=== PATIENT | male | born 1940 | race Caucasian/White ===

== ENCOUNTER 2016-05-14 10:07 | Emergency (ER) | payer OTHER ==
[~2016-05-14] VITALS: Ht 185.4 cm; Wt 112.5 kg
[2016-05-14 10:25] VITALS: BP 113/86; PULSE 75; RESP 19; TEMP 98.9; O2SAT 94
[2016-05-14] MEDS ORDERED: LOVA20TA PO (11:30)
[2016-05-14] MEDS ORDERED: TAMS5CAP PO (11:30)
--- NOTE | 2016-05-14 11:53 | PD ---
HPI Chief Complaint: Cold / Flu Symptoms Time Seen by Provider: 11:34 Travel History International Travel<30 days: No Contact w/Intl Traveler<30days: No Traveled to known affect area: No History of Present Illness HPI This 76-year-old male says he been sick for about a week. He has been having a persistent cough. He is having a lot of sinus drainage. He has a long history of sinus trouble. He's had recurrent infections and has had procedures to drain his sinuses and past. He does not smoke. He has no history of hypertension diabetes or heart disease. He's been having fevers and chills. He 's had diminished appetite. He's been feeling quite weak at home. PFSH Past Medical History High Cholesterol: Yes Chemotherapy: No (BLADDER CA) Tetanus Vaccination: > 5 Years Influenza Vaccination: Yes Past Surgical History Genitourinary Surgery: Yes (bladder surgery r/t cancer) Social History Alcohol Use: Yes (occas beer) Tobacco Use: No (quit in 1996 smoked 1 1/2 ppd cigs) Substance Use: No Allergies-Medications (Allergen,Severity, Reaction): Coded Allergies: Ceclor (Verified Allergy, Severe, FACE AND TONGUE SWELLING, 05/14/16) Reported Meds & Prescriptions Reported Meds & Active Scripts Active Reported Lovastatin 20 Mg Tab 20 Mg PO DAILY Flomax (Tamsulosin HCl) 0.4 Mg Cap 0.4 Mg PO HS Review of Systems General / Constitutional: Positive: Fever, Chills Eyes: No: Diploplia HENT: Positive: Headaches Cardiovascular: No: Chest Pain or Discomfort Respiratory: Positive: Cough, Pleuritic Pain Gastrointestinal: Positive: Nausea, No: Vomiting, Diarrhea Genitourinary: No: Frequency, Dysuria Musculoskeletal: No: Myalgias Neurologic: Positive: Weakness Physical Exam Narrative GENERAL: Well-developed male SKIN: Warm and dry. HEAD: Atraumatic. Normocephalic. He has some tenderness in the frontal sinuses bilaterally EYES: Pupils equal and round. No scleral icterus. No injection or drainage. ENT: No nasal bleeding or discharge. Mucous membranes pink and moist. NECK: Trachea midline. No JVD. CARDIOVASCULAR: Regular rate and rhythm. No murmur appreciated. RESPIRATORY: No accessory muscle use. Clear to auscultation. Breath sounds equal bilaterally. GASTROINTESTINAL: Abdomen soft, non-tender, nondistended. Hepatic and splenic margins not palpable. MUSCULOSKELETAL: No obvious deformities. No clubbing. No cyanosis. No edema. NEUROLOGICAL: Awake and alert. No obvious cranial nerve deficits. Motor grossly within normal limits. Normal speech. PSYCHIATRIC: Appropriate mood and affect; insight and judgment normal. Data Data Last Documented VS Vital Signs Date Time Temp Pulse Resp B/P Pulse Ox O2 Delivery O2 Flow Rate FiO2 05/14/16 11:23 78 18 94 Room Air 05/14/16 10:25 98.9 113/86 Orders Complete Blood Count With Diff (05/14/16 11:49) Basic Metabolic Panel (Bmp) (05/14/16 11:49) Influenzae A/B Antigen (05/14/16 11:49) Chest, Pa & Lat (05/14/16 11:49) Sodium Chlor 0.9% 1000 Ml Inj (Ns 1000 M (05/14/16 12:00) Labs Laboratory Tests Test 05/14/16 12:05 White Blood Count 6.7 TH/MM3 Red Blood Count 5.37 MIL/MM3 Hemoglobin 16.5 GM/DL Hematocrit 48.5 % Mean Corpuscular Volume 90.2 FL Mean Corpuscular Hemoglobin 30.8 PG Mean Corpuscular Hemoglobin 34.1 % Concent Red Cell Distribution Width 12.3 % Platelet Count 144 TH/MM3 Mean Platelet Volume 8.3 FL Neutrophils (%) (Auto) 58.6 % Lymphocytes (%) (Auto) 30.1 % Monocytes (%) (Auto) 8.4 % Eosinophils (%) (Auto) 1.9 % Basophils (%) (Auto) 1.0 % Neutrophils # (Auto) 3.9 TH/MM3 Lymphocytes # (Auto) 2.0 TH/MM3 Monocytes # (Auto) 0.6 TH/MM3 Eosinophils # (Auto) 0.1 TH/MM3 Basophils # (Auto) 0.1 TH/MM3 CBC Comment DIFF FINAL Differential Comment Sodium Level 134 MEQ/L Potassium Level 4.6 MEQ/L Chloride Level 98 MEQ/L Carbon Dioxide Level 29.5 MEQ/L Anion Gap 7 MEQ/L Blood Urea Nitrogen 14 MG/DL Creatinine 1.10 MG/DL Estimat Glomerular Filtration 65 ML/MIN Rate Random Glucose 102 MG/DL Calcium Level 8.6 MG/DL [facility] Medical Decision Making Medical Screen Exam Complete: Yes Emergency Medical Condition: Yes Medical Record Reviewed: Yes Differential Diagnosis Differential includes pneumonia, influenza, sinusitis Narrative Course Tessalon for influenza is negative. His white count is normal. Chest x-ray has some increased density at the left base which may represent atelectasis or infiltrate. He will be treated for sinusitis with Augmentin Diagnosis Primary Impression: Acute sinusitis Qualified Code: J01.11 - Acute recurrent frontal sinusitis Scripts Amoxicillin-Clavulanate (Augmentin)500-125 mg [id number] Mg PO Q8H #30 TAB Ref 0 Prov:Pj Rivera MD 05/14/16 Disposition: DISCHARGE HOME Condition: Stable Pj Rivera MD May 14, 2016 11:53
[2016-05-14] MEDS ORDERED: SODIUM CHLOR 0.9% 1000 ML INJ 1,000 ML IV ONE (12:00)
[2016-05-14 12:15] LABS: AUTOMATED NEUTROPHIL # 3.9 TH/MM3 (1.8-7.7); BASOPHIL # 0.1 TH/MM3 (0-0.2); EOSINOPHIL # 0.1 TH/MM3 (0-0.4); EOSINOPHIL % 1.9 % (0.0-4.0); HEMATOCRIT 48.5 % (39.0-51.0); HEMO FLAGS DIFF FINAL; LYMPH % 30.1 % (9.0-44.0); MEAN CELL VOLUME 90.2 FL (80.0-100.0); MEAN CORPUSCULAR HEMOGLOBIN 30.8 PG (27.0-34.0); MEAN CORPUSCULAR HGB CONC 34.1 % (32.0-36.0); MONO % 8.4 % (0.0-8.0); NEUT % 58.6 % (16.0-70.0); PLATELET COUNT 144 TH/MM3 (150-450); RED BLOOD COUNT 5.37 MIL/MM3 (4.50-5.90); RED CELL DISTRIBUTION WIDTH 12.3 % (11.6-17.2); WHITE BLOOD COUNT 6.7 TH/MM3 (4.0-11.0)
[2016-05-14 12:23] LABS: POTASSIUM 4.6 MEQ/L (3.5-5.1)
[2016-05-14 12:26] LABS: BICARBONATE 29.5 MEQ/L (21.0-32.0)
[2016-05-14] MEDS ORDERED: AUGM500T7 PO (13:09)
--- NOTE | 2016-05-14 13:18 | RADHPO ---
EXAM DATE/TIME: 05/14/2016 12:35 [facility] COMPARISON: No previous studies available for comparison. INDICATIONS : Cough for 1 week. MEDICAL HISTORY : None. SURGICAL HISTORY : None. ENCOUNTER: Initial ACUITY: 1 week PAIN SCORE: 3/10 LOCATION: Bilateral chest FINDINGS: The heart is at the upper limits of normal in size. There is an area of atelectasis or scarring at th e left lung base. The lungs are otherwise clear. The visualized bony structures are intact. CONCLUSION: Smaller of atelectasis or scarring at the left base. Doroteo Mckinley MD on May 14, 2016 at 13:12 Board Certified Radiologist. This report was verified electronically.
[2016-05-14 13:38] VITALS: BP 122/84
== END 2016-05-14 13:50 | disposition home or self-care (01) ==
LOC: PHED 10:07 → PHEFT 13:50
DX: J01.91 Acute recurrent sinusitis, unspecified (principal); E78.00 Pure hypercholesterolemia, unspecified; Z87.891 Personal history of nicotine dependence
CPT/HCPCS: 71020; 80048; 85025; 87804; 96360; 99285; J7030

== ENCOUNTER 2016-05-16 12:29 | Emergency (ER) | payer OTHER ==
[~2016-05-16] VITALS: Ht 185.4 cm; Wt 112.0 kg
[~2016-05-16 12:29] MED LIST: AUGM500T7 PO; LOVA20TA PO; TAMS5CAP PO
[2016-05-16 12:49] VITALS: BP 133/91; PULSE 76; RESP 16; TEMP 97.4; O2SAT 93
[2016-05-16] MEDS ORDERED: SODIUM CHLOR 0.9% 1000 ML INJ 1,000 ML IV SCH (13:04)
--- NOTE | 2016-05-16 13:12 | PD ---
HPI Chief Complaint: Allergic/Adverse Reaction Time Seen by Provider: 12:57 Travel History International Travel<30 days: No Contact w/Intl Traveler<30days: No Traveled to known affect area: No History of Present Illness HPI The patient is a 76-year-old male who presents emergency department for nausea, vomiting, diarrhea. The patient was seen in the emergency department 2 days ago for cough and cold symptoms, had a chest x-ray that was negative and influenza screen that was negative. The patient was discharged home on Augmentin for a sinus infection. The patient took the Augmentin and the next day experienced nausea and vomiting. The patient stopped the Augmentin , however, continues to have nausea. The patient also complains of one loose bowel movement. He denies any current abdominal pain or cramping. He does complain of generalized weakness and presyncopal symptoms. He also states his has similar symptoms, as the patient in the emergency department, with dizziness and nausea/vomiting. The patient denies any current fever, chills, or sweats. Symptoms are moderate, possibly exacerbated by recent infection and administration of Augmentin, there are no current alleviating factors. PFSH Past Medical History High Cholesterol: Yes Diminished Hearing: No Influenza Vaccination: No ?: Not Past Surgical History Genitourinary Surgery: Yes (bladder surgery r/t cancer) Social History Alcohol Use: Yes (occas beer) Tobacco Use: No (quit in 1996 smoked 1 1/2 ppd cigs) Substance Use: No Allergies-Medications (Allergen,Severity, Reaction): Coded Allergies: Ceclor (Verified Allergy, Severe, FACE AND TONGUE SWELLING, 05/16/16) Reported Meds & Prescriptions Reported Meds & Active Scripts Active Augmentin (Amoxicillin-Clavulanate) 500-125 mg Tab 500 Mg PO Q8H Reported Lovastatin 20 Mg Tab 20 Mg PO DAILY Flomax (Tamsulosin HCl) 0.4 Mg Cap 0.4 Mg PO HS Review of Systems Except as stated in HPI: all other systems reviewed are Neg General / Constitutional: No: Fever HENT: Positive: Sore Throat, Congestion Respiratory: Positive: Cough Gastrointestinal: Positive: Nausea, Vomiting, Diarrhea, No: Abdominal Pain Musculoskeletal: Positive: Weakness Neurologic: Positive: Weakness Physical Exam Narrative GENERAL: Awake, alert, pleasant 76-year-old male who appears his stated age and is in no acute respiratory distress. SKIN: Warm and dry. HEAD: Atraumatic. Normocephalic. EYES: Pupils equal and round. No scleral icterus. No injection or drainage. ENT: No nasal bleeding or discharge. Mucous membranes pink and moist. NECK: Trachea midline. No JVD. CARDIOVASCULAR: Regular rate and rhythm. No murmur appreciated. Heart rate in the 60s. RESPIRATORY: No accessory muscle use. Clear to auscultation. Breath sounds equal bilaterally. No wheezes, rale's, or rhonchi noted. GASTROINTESTINAL: Abdomen soft, non-tender, nondistended. No rebound tenderness. MUSCULOSKELETAL: No obvious deformities. No clubbing. No cyanosis. No edema. NEUROLOGICAL: Awake and alert. No obvious cranial nerve deficits. Motor grossly within normal limits. Normal speech. PSYCHIATRIC: Appropriate mood and affect; insight and judgment normal. Data Data Last Documented VS Vital Signs Date Time Temp Pulse Resp B/P Pulse Ox O2 Delivery O2 Flow Rate FiO2 05/16/16 13:34 96 05/16/16 13:17 68 18 128/76 73 18 108/75 76 18 112/76 05/16/16 12:58 Room Air 05/16/16 12:49 97.4 Orders Complete Blood Count With Diff (05/16/16 13:04) Comprehensive Metabolic Panel (05/16/16 13:04) Lipase (05/16/16 13:04) Lactic Acid (05/16/16 13:04) Iv Access Insert/Monitor (05/16/16 13:04) Ecg Monitoring (05/16/16 13:04) Oximetry (05/16/16 13:04) Ondansetron Inj (Zofran Inj) (05/16/16 13:15) Sodium Chlor 0.9% 1000 Ml Inj (Ns 1000 M (05/16/16 13:04) Sodium Chloride 0.9% Flush (Ns Flush) (05/16/16 13:15) Orthostatic Vital Signs (05/16/16 13:04) Labs Laboratory Tests Test 05/16/16 13:25 White Blood Count 5.4 TH/MM3 Red Blood Count 5.38 MIL/MM3 Hemoglobin 16.5 GM/DL Hematocrit 48.7 % Mean Corpuscular Volume 90.6 FL Mean Corpuscular Hemoglobin 30.8 PG Mean Corpuscular Hemoglobin 33.9 % Concent Red Cell Distribution Width 12.2 % Platelet Count 205 TH/MM3 Mean Platelet Volume 8.3 FL Neutrophils (%) (Auto) 56.0 % Lymphocytes (%) (Auto) 29.1 % Monocytes (%) (Auto) 10.2 % Eosinophils (%) (Auto) 3.7 % Basophils (%) (Auto) 1.0 % Neutrophils # (Auto) 2.9 TH/MM3 Lymphocytes # (Auto) 1.6 TH/MM3 Monocytes # (Auto) 0.6 TH/MM3 Eosinophils # (Auto) 0.2 TH/MM3 Basophils # (Auto) 0.1 TH/MM3 CBC Comment DIFF FINAL Differential Comment Sodium Level 136 MEQ/L Potassium Level 3.9 MEQ/L Chloride Level 103 MEQ/L Carbon Dioxide Level 24.3 MEQ/L Anion Gap 9 MEQ/L Blood Urea Nitrogen 12 MG/DL Creatinine 1.10 MG/DL Estimat Glomerular Filtration 65 ML/MIN Rate Random Glucose 126 MG/DL Lactic Acid Level 1.5 mmol/L Calcium Level 8.1 MG/DL Total Bilirubin 0.9 MG/DL Aspartate Amino Transf 18 U/L (AST/SGOT) Alanine Aminotransferase 28 U/L (ALT/SGPT) Alkaline Phosphatase 98 U/L Total Protein 7.5 GM/DL Albumin 3.2 GM/DL Lipase 68 U/L MDM Medical Decision Making Medical Screen Exam Complete: Yes Emergency Medical Condition: Yes Medical Record Reviewed: Yes Interpretation(s) Laboratory Tests Test 05/16/16 13:25 White Blood Count 5.4 TH/MM3 Red Blood Count 5.38 MIL/MM3 Hemoglobin 16.5 GM/DL Hematocrit 48.7 % Mean Corpuscular Volume 90.6 FL Mean Corpuscular Hemoglobin 30.8 PG Mean Corpuscular Hemoglobin 33.9 % Concent Red Cell Distribution Width 12.2 % Platelet Count 205 TH/MM3 Mean Platelet Volume 8.3 FL Neutrophils (%) (Auto) 56.0 % Lymphocytes (%) (Auto) 29.1 % Monocytes (%) (Auto) 10.2 % Eosinophils (%) (Auto) 3.7 % Basophils (%) (Auto) 1.0 % Neutrophils # (Auto) 2.9 TH/MM3 Lymphocytes # (Auto) 1.6 TH/MM3 Monocytes # (Auto) 0.6 TH/MM3 Eosinophils # (Auto) 0.2 TH/MM3 Basophils # (Auto) 0.1 TH/MM3 CBC Comment DIFF FINAL Differential Comment Sodium Level 136 MEQ/L Potassium Level 3.9 MEQ/L Chloride Level 103 MEQ/L Carbon Dioxide Level 24.3 MEQ/L Anion Gap 9 MEQ/L Blood Urea Nitrogen 12 MG/DL Creatinine 1.10 MG/DL Estimat Glomerular Filtration 65 ML/MIN Rate Random Glucose 126 MG/DL Lactic Acid Level 1.5 mmol/L Calcium Level 8.1 MG/DL Total Bilirubin 0.9 MG/DL Aspartate Amino Transf 18 U/L (AST/SGOT) Alanine Aminotransferase 28 U/L (ALT/SGPT) Alkaline Phosphatase 98 U/L Total Protein 7.5 GM/DL Albumin 3.2 GM/DL Lipase 68 U/L Differential Diagnosis Differential diagnosis includes gastroenteritis, influenza, viral syndrome, medication side effect, dehydration, presyncope. Narrative Course IV was established, labs were drawn and sent, and the patient was placed on cardiac telemetry monitoring and continuous pulse oximetry monitoring. I reviewed the patient's lab work from 2 days ago, was unremarkable, white count was normal. Influenza screen was negative. Chest x-ray revealed atelectasis versus scarring, no evidence of infiltrate. The patient was administered 1 L of IV fluids and 4 mg of Zofran intravenously. Orthostatic vital signs revealed a drop in systolic blood pressure of 20 from lying to sitting upright, however, heart rate only increased 5 bpm. Labs are unremarkable except for increase in monocytes, patient may have viral syndrome as his has similar symptoms. The patient's nausea did improve, he was administered a by mouth challenge, with a popsicle. The patient tolerated a popsicle without difficulty , will be discharged home on Zofran. He is advised to stop Augmentin, symptomatic treatment with Zofran, 0.8 fluids, follow-up with his primary physician. Diagnosis Primary Impression: Viral syndrome Patient Instructions: General Instructions Additional Instructions: Plenty of fluids to stay hydrated. Zofran as directed. Follow-up with your primary physician. Clear liquid diet and advance as tolerated. Med/Other Pt SpecificInfo: Prescription(s) given Scripts Ondansetron Odt (Zofran Odt)4 Mg Tab4 Mg SL Q6HR PRN (Nausea/Vomiting) #7 TAB Ref 0 Prov:Albert Ghosh MD 1/28/17 Disposition: 01 DISCHARGE HOME Condition: Stable Albert Ghosh MD May 16, 2016 13:12
[2016-05-16] MEDS ORDERED: ONDANSETRON HCL 4 MG/2 ML VIAL IVP ONE (13:15)
[2016-05-16] MEDS ORDERED: SODIUM CHLORIDE 0.9% FLUSH 5 ML FLUSH IVF PRN (13:15)
[2016-05-16 13:17] VITALS: BP_SYST 108; BP_SYST 112; BP_SYST 128; BP_DIAS 75; BP_DIAS 76; RESP 18
[2016-05-16 13:31] LABS: AUTOMATED NEUTROPHIL # 2.9 TH/MM3 (1.8-7.7); BASOPHIL # 0.1 TH/MM3 (0-0.2); EOSINOPHIL # 0.2 TH/MM3 (0-0.4); EOSINOPHIL % 3.7 % (0.0-4.0); HEMATOCRIT 48.7 % (39.0-51.0); LYMPH % 29.1 % (9.0-44.0); LYMPHOCYTE # 1.6 TH/MM3 (1.0-4.8); MEAN CELL VOLUME 90.6 FL (80.0-100.0); MEAN CORPUSCULAR HEMOGLOBIN 30.8 PG (27.0-34.0); MEAN CORPUSCULAR HGB CONC 33.9 % (32.0-36.0); MONO % 10.2 % (0.0-8.0); PLATELET COUNT 205 TH/MM3 (150-450); RED BLOOD COUNT 5.38 MIL/MM3 (4.50-5.90); RED CELL DISTRIBUTION WIDTH 12.2 % (11.6-17.2); WHITE BLOOD COUNT 5.4 TH/MM3 (4.0-11.0)
[2016-05-16 13:34] VITALS: O2SAT 96
[2016-05-16 13:37] LABS: HEMO FLAGS DIFF FINAL
[2016-05-16 13:40] LABS: CHLORIDE 103 MEQ/L (98-107); POTASSIUM 3.9 MEQ/L (3.5-5.1); SODIUM (NA) 136 MEQ/L (136-145)
[2016-05-16 13:44] LABS: ANION GAP 9 MEQ/L (5-15); BICARBONATE 24.3 MEQ/L (21.0-32.0); BLOOD UREA NITROGEN 12 MG/DL (7-18)
[2016-05-16 13:47] LABS: ALT (GPT) 28 U/L (12-78); AST (GOT) 18 U/L (15-37); GLOMERULAR FILTRATION RATE 65 ML/MIN (>89)
[2016-05-16 13:48] LABS: TOTAL BILIRUBIN ADULT 0.9 MG/DL (0.2-1.0)
[2016-05-16 13:49] LABS: ALKALINE PHOSPHATASE 98 U/L (45-117)
[2016-05-16] MEDS ORDERED: ZOFR4TAB3 SL (14:21)
[2016-05-16 15:06] VITALS: BP 108/70
== END 2016-05-16 15:09 | disposition home or self-care (01) ==
LOC: PHED 12:29
DX: B34.9 Viral infection, unspecified (principal); R19.7 Diarrhea, unspecified; R53.1 Weakness; E78.00 Pure hypercholesterolemia, unspecified
CPT/HCPCS: 80053; 83605; 83690; 85025; 96361; 96374; 99284; J2405; J7030